=== PATIENT | female | born 1985 ===

== ENCOUNTER → 2016-02-13 | Outpatient (CLI) | payer BC, MEDICAID ==
--- NOTE | 2016-02-13 11:28 | US ---
Thyroid Ultrasound Indication: Thyroiditis. Follow up nodular gland. Technique: The thyroid gland was evaluated with high-resolution linear imaging in the short and long axis planes. Comparison: Thyroid sonogram, June 04, 2014, and Nuclear Medicine thyroid scan, May 17, 2014. Findings: The upper normal-sized thyroid gland continues to have diffuse heterogeneous pattern with a morphous hypoechoic bands of parenchyma with increased blood flow. The hypoechoic foci scattered thro ughout the right and left lobes, previously documented as "nodules" are unchanged and merely appear t o represent swirling bands of hypoechoic parenchyma. One such focus in the right mid gland measures 0 .5 x 0.5 cm (unchanged) and a second focus in the lateral left mid lobe measuring 0.5 x 0.4 cm is unc hanged. No discrete nodule or mass has developed. No abnormal microcalcifications are scattered throughout th e gland. Survey of the right and left burton chains reveals normal-sized nodes. Impression: Heterogeneous thyroid gland indicative of thyroiditis. No discrete nodule or mass.
== END ==
LOC: BMCIMAGING 07:32
PROVIDERS: ATTEND Internal Medicine Endocrinology, Diabetes & Metabolism
DX: E06.9 Thyroiditis, unspecified (principal)
CPT/HCPCS: 76536-PO